=== PATIENT | female | born 1990 | race American Indian/Alaskan Native ===

== ENCOUNTER → 2020-03-22 19:14 | Outpatient (CLI) | payer OTHER, SELFPAY ==
--- NOTE | 2020-03-22 | DI.RAD.S_ITS ---
PROCEDURE: XR THORACIC SPINE 2V INDICATIONS: M9902 M546 Pain, injury TECHNIQUE: 3 views of the thoracic spine were acquired. COMPARISON: None. FINDINGS: Bones: No fracture. Lateral curvature of the visualized spine. Multilevel degenerative endplate sclerosis and spurring. Diffuse facet arthropathy. Soft tissues: No paravertebral stripe thickening. IMPRESSION: No fracture. Lateral curvature of the visualized spine. Discogenic changes Dictated by: Yvan Salgado M.D. on 03/23/2020 at 9:43 Approved by: Yvan Salgado M.D. on 03/23/2020 at 9:44
== END ==
PROVIDERS: Referring Provider Chiropractor; Visit Provider Chiropractor
DX: M99.02 Segmental and somatic dysfunction of thoracic region (principal); M54.6 Pain in thoracic spine; M47.812 Spondylosis without myelopathy or radiculopathy, cervical region
CPT/HCPCS: 72070

== ENCOUNTER → 2023-12-19 14:14 | Outpatient (CLI) | payer MEDICAID, SELFPAY ==
--- NOTE | 2023-12-19 14:17 | DI.MRI.S_ITS ---
PROCEDURE: MR HEAD/BRAIN WO/W CON INDICATIONS: Left sided numbness TECHNIQUE: Noncontrast axial T1 spin echo, axial T2 fast spin echo, sagittal and axial FLAIR, coronal T2 fast spin echo, axial gradient echo, axial diffusion and ADC through the brain. After the administration of contrast, axial and coronal and sagittal 3D VIBE or T1 spin echo with fat saturation through the brain. COMPARISON: [facility], CT, CT HEAD WITHOUT CONTRAST, 10/28/2023, 17:12. No acute FINDINGS: Image quality: Excellent. CSF Spaces: Basal cisterns are patent. No extra-axial fluid collections. Ventricles are normal in size and shape. Brain: Left frontal periventricular T2/FLAIR hyperintense lesion with a perpendicular orientation from the lateral ventricle and mild T1 hypointense signal. There are smaller adjacent periventricular lesions with perpendicular orientation and some faint lesions which involve the corpus callosum. Additional periventricular lesion along the occipital horn of the left lateral ventricle. Few other tiny foci of FLAIR hyperintense signal within the supratentorial white matter. No midline shift. No intracranial bleeds or masses. No abnormal intracranial enhancement. The brainstem appears normal. Diffusion-weighted images demonstrate no acute infarct. No chronic ischemic insults. Normal intravascular flow voids are present. Skull and face: Calvarial marrow is normal in signal. Orbits appear normal. Sinuses: Sinuses and mastoids appear clear. IMPRESSION: Periventricular white matter lesions as described above concerning for a demyelinating process such as multiple sclerosis. Recommend clinical co intracranial abnormalities otherwise. rrelation. Dictated by: Long Sen M.D. on 12/21/2023 at 13:14 Approved by: Long Sen M.D. on 12/21/2023 at 13:18
== END ==
LOC: MRI 14:16
PROVIDERS: Referring Provider Family Medicine; Visit Provider Family Medicine
DX: G93.9 Disorder of brain, unspecified (principal); R20.0 Anesthesia of skin
CPT/HCPCS: 70553; A9579

== ENCOUNTER 2023-12-24 11:38 | Emergency (ER) | payer MEDICAID, SELFPAY ==
[2023-12-24 11:44] VITALS: BP 120/77; PULSE 99; RESP 16; TEMP 36.9; O2SAT 99; BMI 25.6
--- NOTE | 2023-12-24 12:08 | PC.NURSE ---
Pt concerned about progressing MS; pt ambulated w/o assistance. Stable gait. Respirations regular and unlabored. Pt tearful. Pt declined further comfort measures (e.g., warm blanket)
--- NOTE | 2023-12-24 14:02 | EKG_ITS ---
[address] [address] [address], [place] [address] Test Date: 2023-12-24 Pat Name: Cici Gonzales Department: [facility] Room: Gender: Female Nurse Licensed Practical: NEFTALY : 1990 Requested By: Order Number: [id number] Reading MD: Juan Pablo Bradford Measurements Intervals [place] Rate: 68 P: 41 MS: 142 QRS: 78 QRSD: 84 T: 48 QT: 378 QTc: 401 Interpretive Statements Normal sinus rhythm Electronically Signed On 12-29-2023 8:59:39 PDT by Juan Pablo Bradford
[2023-12-24 14:04] LABS: Add Manual Diff / Slide Review NO; Basophils Absolute Auto 0 /uL (0-100); Basophils Percent Auto 0.5 % (0-2); Eosinophils Absolute Auto 0 /uL (0-450); Eosinophils Percent Auto 0.5 % (2-4); Hematocrit 43.7 % (36-46); Hemoglobin 15.2 g/dL (12.0-16.0); Lymphocytes Absolute Auto 1800 /uL (1100-4500); Lymphocytes Percent Auto 20.9 % (25-40); Mean Corpuscular HGB Conc 34.7 % (30-36); Mean Corpuscular Hemoglobin 30.9 PG (26-34); Mean Corpuscular Volume 88.9 fL (80-100); Monocytes Absolute Auto 400 /uL (0-900); Monocytes Percent Auto 4.6 % (3-14); Neutrophils Absolute Auto 6300 /uL (1500-7000); Neutrophils Percent Auto 73.5 % (50-75); Platelet Count 255 X10^3/uL (150-400); Red Blood Cell Count 4.91 X10^6/uL (4.0-5.2); Red Cell Distribution Width 13.9 % (11.6-14.8); White Blood Cell Count 8.6 X10^3/uL (4.5-11.0)
[2023-12-24 14:15] LABS: INR 1.1 (0.9-1.3); Prothrombin Time 12.3 SECONDS (9.4-12.5)
[2023-12-24 14:17] LABS: PTT Partial Thromboplastin Tim 34 SECONDS (25.1-36.5)
[2023-12-24 14:19] LABS: Alanine Aminotransferase 32 IU/L (<35); Albumin 4.7 g/dL (3.5-5.0); Albumin Globulin Ratio 1.2 (1.0-2.8); Alkaline Phosphatase 69 U/L (38-126); Aspartate Aminotransferase 24 IU/L (14-36); BUN Creatinine Ratio 14.5 (6-22); Bilirubin Total 0.9 mg/dL (0.2-1.3); Blood Urea Nitrogen 12 mg/dL (7-17); Calcium 9.1 mg/dL (8.4-10.2); Carbon Dioxide 25 mmol/L (22-32); Chloride 104 mmol/L (98-107); Creatine Kinase 36 U/L (30-135); Estimated Glomerular Filt Rate > 60 mL/min (>60); Globulin 3.8 g/dL (1.7-4.1); Glucose 96 mg/dL (70-100); HEMOLYSIS < 15 (0-50); Lipase 162 U/L (23-300); Magnesium 2.3 mg/dL (1.6-2.3); Potassium 3.8 mmol/L (3.4-5.1); Sodium 139 mmol/L (137-145); Total Protein 8.5 g/dL (6.3-8.2)
[2023-12-24 14:30] LABS: NT-proBNP (BNP-Adult 18+) < 20 pg/mL (<125); Troponin I < 0.012 ng/mL (0.01-0.034)
--- NOTE | 2023-12-24 14:44 | ED.NEUROSD ---
HPI - Neuro Symptoms/Deficit General Chief Complaint: Neuro Symptoms/Deficit Stated Complaint: MS Symptoms Time Seen by Provider: 12/24/23 13:52 Source: patient Mode of arrival: Ambulatory History of Present Illness HPI Narrative: 33-year-old female with worsening left-sided numbness, face and upper extremity more so than the lower extremity. Recent MRI of the brain suggestive of demyelinating process, yet to speak with Neurology but scheduled to have an appointment with Neurology 01/05/2024 Dr. Saldana at [facility]. Patient recalls having some weakness and numbness to the left face, some transient blurred vision, intermittently since July 2023. She had low back pain problems in August of 2023, that seemed to resolve by September 2023. Subsequent to September she started developing left mid facial pain, left eye pain, was concerned that she might have trigeminal neuralgia, or TMJ, saw attending ambulatory care provider, no improvement of symptoms. She is intermittently felt off balance. She had MRI of the brain performed 12/19/2023 here that was ordered by her primary care providers Dr. Garcia and Dr. Adam at [facility] as an outpatient. She recalls phone consultation was done by her provider with [facility] neurology, with discussion of MRI showing some kind of demyelinating process, apparently there was ?no intracranial enhancement ?so apparently this was not felt to be an active problem, no specific therapy. Further imaging of the spine MRI T-spine and lumbar spine was advised, not yet scheduled. She has had increasing left numbness primarily facial and arm, less so on the leg. She denies new weakness. No incontinence. No seizure shaking activity. No current or recent visual complaints. No headache or neck pain problems. Denies fevers or chills. On Anticoagulants: No Related Data Allergies Allergy/AdvReac Type Severity Reaction Status Date / Time lactose AdvReac Mild Abdominal Verified 12/24/23 11:52 Pain shellfish derived AdvReac Mild Joint Pain Verified 12/24/23 11:51 Review of Systems Review of Systems Narrative: As per HPI Hematologic/Lymphatic On Anticoagulants: No Patient History Social History Smoking Status: Never smoker Smoking Status: Never smoker alcohol intake frequency: 0-2 drinks per day Substance Use Type: does not use Exam Narrative Exam Narrative: GENERAL: Well-developed patient, in mild distress. HEAD: Atraumatic. Normocephalic. EYES: Pupils equal round and reactive. Extraocular motions intact. No scleral icterus. No injection or drainage. ENT: Nose without bleeding, purulent drainage. Throat without erythema, tonsillar hypertrophy or exudate. Airway patent. NECK: Trachea midline. Non tender CARDIOVASCULAR: Regular rate and rhythm without murmurs, gallops, or rubs. RESPIRATORY: Clear to auscultation. Breath sounds equal bilaterally. No wheezes, rales, or rhonchi. GASTROINTESTINAL: Abdomen soft, non-tender, nondistended. EXTREMITIES: No edema or joint tenderness. BACK: Nontender without deformity or crepitance. No flank tenderness. NEURO: AOx3. Motor 5/5 upper extremities, motor 5/5 lower extremities, [id number] testing unremarkable. Decreased light touch sensation to left upper mid and lower face, decreased light touch sensation to left upper extremity, intact light touch sensation both lower extremities. Downgoing toes negative Babinski. DTRs unremarkable. SKIN: No rash or erythema of visible areas Initial Vital Signs Initial Vital Signs: Vital Signs Temperature 98.4 F 12/24/23 11:44 Pulse Rate 99 H 12/24/23 11:44 Respiratory Rate 16 12/24/23 11:44 Blood Pressure 120/77 12/24/23 11:44 Pulse Oximetry 99 12/24/23 11:44 Oxygen Delivery Method Room Air 12/24/23 11:44 Course Orders Ordered: ED Orders 12/24/23 13:40 EKG-12 Lead Stat 12/24/23 13:58 Complete Blood Count AUTO DIFF Stat Comprehensive Metabolic Panel Stat Lipase Stat Magnesium Stat NT-proBNP (BNP-Adult 18+) Stat PTT Partial Thromboplastin Hu Stat Prothrombin Time INR Stat Troponin & CK Cardiac Panel Stat Vital Signs Vital signs: Vital Signs - 8 hr 12/24/23 11:44 12/24/23 16:16 Temperature 98.4 F Pulse Rate 99 H Respiratory Rate 16 16 Blood Pressure 120/77 Pulse Oximetry 99 Oxygen Delivery Method Room Air MDM - Neuro Symptoms/Deficit Lab Data Attestation: I reviewed the patient's lab results. 12/24/23 13:58 12/24/23 13:58 Labs: Lab Results 12/24/23 Range/Units 13:58 WBC 8.6 (4.5-11.0) X10^3/uL RBC 4.91 (4.0-5.2) X10^6/uL Hgb 15.2 (12.0-16.0) g/dL Hct 43.7 (36-46) % MCV 88.9 (80-100) fL MCH 30.9 (26-34) PG MCHC 34.7 (30-36) % RDW 13.9 (11.6-14.8) % Plt Count 255 (150-400) X10^3/uL Neut % (Auto) 73.5 (50-75) % Lymph % (Auto) 20.9 L (25-40) % Baxter % (Auto) 4.6 (3-14) % Eos % (Auto) 0.5 L (2-4) % Baso % (Auto) 0.5 (0-2) % Neut # (Auto) 6300 (6512-7259) /uL Lymph # (Auto) 1800 (5569-9714) /uL Baxter # (Auto) 400 (0-900) /uL Eos # (Auto) 0 (0-450) /uL Baso # (Auto) 0 (0-100) /uL PT 12.3 (9.4-12.5) SECONDS INR 1.1 (0.9-1.3) APTT 34 (25.1-36.5) SECONDS Sodium 139 (137-145) mmol/L Potassium 3.8 (3.4-5.1) mmol/L Chloride 104 (98-107) mmol/L Carbon Dioxide 25 (22-32) mmol/L BUN 12 (7-17) mg/dL Creatinine 0.83 (0.52-1.04) mg/dL Estimated GFR > 60 (>60) mL/min BUN/Creatinine Ratio 14.5 (6-22) Glucose 96 (70-100) mg/dL Calcium 9.1 (8.4-10.2) mg/dL Magnesium 2.3 (1.6-2.3) mg/dL Total Bilirubin 0.9 (0.2-1.3) mg/dL AST 24 (14-36) IU/L ALT 32 (<35) IU/L Alkaline Phosphatase 69 (38-126) U/L Total Creatine Kinase 36 (30-135) U/L Troponin I < 0.012 (0.01-0.034) ng/mL NT-Pro-B Natriuret Pep < 20 (<125) pg/mL Total Protein 8.5 H (6.3-8.2) g/dL Albumin 4.7 (3.5-5.0) g/dL Globulin 3.8 (1.7-4.1) g/dL Albumin/Globulin Ratio 1.2 (1.0-2.8) Lipase 162 (23-300) U/L ECG Data Attestation: I personally reviewed and interpreted this ECG as follows: Interpretation: Normal sinus rhythm with rate of 68, no obvious ST segment elevation or depression changes. SC 142, QRS 84, QTC 401. MDM Narrative Medical decision making narrative: 33-year-old female with intermittent predominant left-sided face and left upper extremity numbness and tingling since July 2023, lumbar back pain that seems resolved from September-October, recent MRI brain study 12/19/2023 suspicious for a demyelinating process, awaiting outpatient Neurology consultation on 01/05/2024, recommended to obtain MRI T-spine and L-spine studies that have not yet been performed. Patient presenting with increased left-sided numbness to left face and left arm last few days, no weakness, some decreased sensation light touch left facial divisions and left upper extremity, less so left lower extremity, however 4 months duration. No motor findings. CASUALTY INSURANCE CLAIM ADJUSTER query today 23 of December holiday, no instrument/control technician available at this hour, unclear if available tomorrow. Seems unlikely emergent transfer for imaging warranted. Patient/family would like me to discuss case with Neurology, to see if there is any treatment options that they would recommend at this time, versus outpatient workup Case discsssued with intake nurse, await callback from Neurology While awaiting callback from Neurology patient/family eloped from the ED, unanncounced to me, as stated by ED nursing Discharge Plan Departure Patient Disposition: Left Against Medical Advice Clinical Impression: Patient left before treatment completed Activity Restrictions/Additional Instructions: Patient eloped before attempts to reach Neurology for phone consultation. Patient has follow up with Neurology was scheduled as an outpatient 01/05/2024 Referrals: Miscellaneous,Doctor, MD [Primary Care Provider] - Stand Alone Forms: Patient Portal/API, Against Medical Advice
--- NOTE | 2023-12-24 16:12 | PC.NURSE ---
Pt stated she wished to leave and asked if MD could call back when Neurology calls back; Pt informed MD leaves at 1800 and if he receives a call back prior to departure he will make an effort to contact pt with neurology recommendations. Pt states she has an outpatient appt with neurology. Pt alert and oriented, respirations regular and unlabored, GCS 15, stable gait. Pt expressed wishes to leave rather than wait for Neurology call back. Pt willingly signed AMA paperwork. healthcare management consultant and aware. Pt left w/ significant other.
--- NOTE | 2023-12-24 16:15 | PC.NURSE ---
Left sided numbness and tingling; seen at PCP and had an outpatient MRI where she expressed she may have a dx of MS. Pt expresses concerns over worsening symptoms.
[2023-12-24 16:16] VITALS: RESP 16
== END 2023-12-24 16:16 | disposition left against medical advice (07) ==
PROVIDERS: Emergency Provider Emergency Medicine
DX: R20.0 Anesthesia of skin (principal); R20.2 Paresthesia of skin; Z53.29 Procedure and treatment not carried out because of patient's decision for other reasons
CPT/HCPCS: 36415; 80053; 82550; 83690; 83735; 83880; 84484; 85025; 85610; 85730; 93005; 99283; 99284

== ENCOUNTER → 2023-12-27 08:37 | Outpatient (CLI) | payer MEDICAID, SELFPAY ==
--- NOTE | 2023-12-27 08:38 | DI.MRI.S_ITS ---
PROCEDURE: MR CERVICAL SPINE WO/W CON INDICATIONS: Demyelinating disease of central nervous system TECHNIQUE: Noncontrast sagittal T1 spin echo and T2 fast spin echo, sagittal STIR, sagittal PD fast spin echo, foraminal oblique sagittal T2 fast spin echo, axial gradient echo or T2 fast spin echo through the cervical spine. After the administration of contrast, sagittal and axial T1 spin echo with fat saturation through the cervical spine. COMPARISON: [facility], MR, MR HEAD/BRAIN WO/W CON, 12/19/2023, 14:53. FINDINGS: Image quality: Excellent. Alignment and curvature: There is normal bony alignment. Marrow: Marrow demonstrates normal overall signal. Spinal cord: Visualized spinal cord is normal in size, without white matter lesions. No suspicious intramedullary enhancement. No cerebellar tonsillar herniation. Paraspinous soft tissues: No paravertebral masses or suspicious enhancement. C2-C3: Normal appearance. C3-C4: Right facet hypertrophy. No canal stenosis or foraminal stenosis. C4-C5: Disc bulge. No canal stenosis or foraminal stenosis. C5-C6: Posterior disc bulge. No central canal stenosis. Superimposed mild left posterior lateral disc protrusion which impinges on the ventral horn of the left C6 nerve root in the left lateral recess. Reference sagittal T2 image 31 of series 6 and axial T2 image 30 of series 5. It also abuts the left C6 nerve root in the left foramen. C6-C7: Normal appearance. C7-T1: Normal appearance. IMPRESSION: 1. No cervical cord lesions. No abnormal enhancement with gadolinium. 2. There is mild underlying cervical spondylosis. 3. A mild left posterior lateral disc protrusion at C5-C6 impinges on the ventral horn of the left C6 nerve root in the left lateral recess and abuts the left C6 nerve root in the left foramen. Dictated by: Jose Bustamante M.D. on 12/28/2023 at 8:43 Approved by: Jose Bustamante M.D. on 12/28/2023 at 8:53
--- NOTE | 2023-12-27 08:38 | DI.MRI.S_ITS ---
PROCEDURE: MR THORACIC SPINE WO/W CON INDICATIONS: Demyelinating disease of central nervous system TECHNIQUE: Noncontrast sagittal T1 spin echo and T2 fast spin echo, sagittal STIR, axial T1 and T2 fast spin echo through the thoracic spine. After the administration of contrast, axial and sagittal T1 spin echo with fat saturation through the thoracic spine. COMPARISON: None. FINDINGS: Image quality: Excellent. Alignment and curvature: There is normal bony alignment. Marrow: Marrow is of normal overall signal. No acute vertebral body compression fractures. Spinal cord: There is a single focus of potential signal abnormality present at the T5 vertebral body level, to the left of midline. This is not definite. Reference axial T2 image 19 of series 10 and axial T1 post gadolinium fat sat image 19 of series 15. It is not confirmed on sagittal imaging. Paraspinous soft tissues: No paravertebral masses or abnormal enhancement. Miscellaneous: Central canal and foramina appear widely patent at all scanned levels. IMPRESSION: 1. Question single solitary very small subtle thoracic cord lesion. This is not definite. Comment: Consider 3 month follow-up thoracic spine imaging. Dictated by: Jose Bustamante M.D. on 12/28/2023 at 8:53 Approved by: Jose Bustamante M.D. on 12/28/2023 at 10:00
== END ==
PROVIDERS: Referring Provider Family Medicine; Visit Provider Family Medicine
DX: G37.9 Demyelinating disease of central nervous system, unspecified (principal); M47.812 Spondylosis without myelopathy or radiculopathy, cervical region; M50.222 Other cervical disc displacement at C5-C6 level
CPT/HCPCS: 72156; 72157; A9579

== ENCOUNTER → 2024-04-19 16:30 | Outpatient (CLI) | payer MEDICAID, SELFPAY ==
--- NOTE | 2024-04-19 16:31 | DI.US.S_ITS ---
PROCEDURE: US PELVIC COMPLETE INDICATIONS: ABD PAIN TECHNIQUE: Real-time scanning was performed of the pelvic organs, with image documentation. Additional endovaginal scanning was necessary due to incomplete visualization of the adnexal and endometrial structures by transabdominal scanning. COMPARISON: None. FINDINGS: Uterus: 8.7 x 3.3 x 4.7 cm. The endometrium measures 11 mm. Possible endocervical lesion measuring 1.6 x 0.6 cm. Vascular flows are seen by ultrasound. Ovaries: Nonenlarged right ovary. Mildly enlarged left ovary at 16 cc. A dominant follicle is seen measuring 2.4 x 2 cm. Other: No pathologic free abdominal or pelvic fluid. IMPRESSION: No acute findings to explain abdominal pain. The left ovary is mildly enlarged with a dominant follicular cyst measuring 2.4 cm. Consider follow-up if symptoms worsen, as this can predispose to torsion. Possible endocervical lesion measuring 1.6 x 0.6 cm, which may represent an incidental polyp. Direct visualization versus MRI could further evaluate if needed. Dictated by: Juanito Novoa M.D. on 04/19/2024 at 21:14 Approved by: Juanito Novoa M.D. on 04/19/2024 at 21:17
== END ==
PROVIDERS: PCP Family Medicine; Referring Provider Family Medicine; Visit Provider Family Medicine
DX: N83.02 Follicular cyst of left ovary (principal); R10.32 Left lower quadrant pain
CPT/HCPCS: 76856

== ENCOUNTER 2024-07-08 06:33 | Day surgery (SDC) | payer MEDICAID, SELFPAY ==
[2024-07-04 12:38] VITALS: BMI 25.7
[2024-07-08] VITALS (7 sets, daily range): BP systolic 105–125; BP diastolic 64–86; PULSE 85–107; RESP 16–21; TEMP 36.2–36.4; O2SAT 98–100; BMI 26.7
--- NOTE | 2024-07-08 | PATH_ITS ---
[facility] Accession Number: [id number] No. of containers..01 Tissue . 01 Material submitted: . endometrium - ENDOMETRIAL POLYP . 01 Diagnosis: ENDOMETRIAL POLYP: Benign mixed phase endometrium; negative for intraepithelial neoplasia or malignancy. Some endometrial fragments demonstrate prominent vessels, suggestive of polyp, if clinical and imaging studies are concordant. MRV 07/13/2024 1316 Local . 01 Comment: This case was also reviewed by Dr. Vivi Acevedo, who agrees with the interpretation. . 01 Electronically signed: . Dina Lawson MD, Pathologist NPI- [id number] . 01 Gross description: . The specimen is received in formalin, labeled with two patient identifiers and endometrial polyp, and consists of a 3.5 x 1.5 x 0.8 cm aggregate of acharya-pink, irregular soft tissue fragments admixed with clotted blood which are filtered and submitted entirely in cassettes A1 and A2. ([id number]) /FRR 07/09/2024 1755 Local . 01 Pathologist provided ICD-10: N84.1 . 01 CPT . 101117 Specimen Comment: A courtesy copy of this report has been sent to [phone] Performed at: [address] [facility]– [place], [place], [place] [id number] MD Roney García MD Phone: [phone]
[2024-07-08] MEDS: LACTATED RINGERS 1,000 ML 21 ML IV (07:01)
--- NOTE | 2024-07-08 07:13 | PM.PREOP ---
Pre-operative Note Interval Note History & Physical reviewed/Exam performed by Physician: Yes Changes to H&P: No
--- NOTE | 2024-07-08 07:55 | SUR.OPER ---
Lithotomy on padded OR bed, head on pillow, arms secured on padded arm boards at <90 degrees abduction. Legs secured in padded yellow fins stirrups.
--- NOTE | 2024-07-08 08:22 | PM.OP.1 ---
Operative Date/Time/Diagnoses Date of procedure: 07/08/24 Time of procedure: 08:23 Pre-op diagnosis: Endocervical polyp on ultrasound Post-op diagnosis: same (Multiple uterine polyps) Procedure & Clinicians Procedure: Hysteroscopy with MyoSure removal uterine/endocervical polyps Same procedure as scheduled: Yes Indications: Large endocervical polyp found on ultrasound Surgeon: Ofelia Burton Click Yes if Unassisted: Yes Anesthesia Type: General Operative Notes Findings: Multiple uterine and 1 large endocervical polyp. Normal exam under anesthesia. Closure Type: not applicable Specimen(s): other (Endometrial/endocervical polyps) Estimated Blood Loss (mL): 10 Blood products transfused: none Procedure in detail: The patient was brought to the operating room where she underwent general anesthesia. She was placed in low stirrups. She was prepped and draped in usual sterile fashion with pulsatile stockings in place and functional, warming in place, antibiotics in prior to beginning the case. She emptied her bladder part of the case. A single-tooth tenaculum was placed on the anterior lip of the cervix and the uterus dilated to #8 Hegar dilator. The hysteroscope was placed into the uterus with a saline solution running at 100 with constant suction. The MyoSure was used to remove the endometrial and endocervical polyps. Total fluid used 1143 cc, fluid deficit 0, final pressure 100, cut time 1.56. The patient went to recovery room in good condition counts of instruments and sponges were correct. Complications: none Post-operative Condition: stable Disposition: same day surgery Plan for aftercare: Home when awake and stable
[2024-07-08] MEDS: ACETAMINOPHEN IV 1,000 MG/100 ML VIAL 400 MG IV (08:47)
== END 2024-07-08 09:01 | disposition home or self-care (01) ==
PROVIDERS: PCP Nurse Practitioner Family; Referring Provider Specialist; Visit Provider Specialist
PROC: 0UDB8ZZ Extraction of Endometrium, Via Natural or Artificial Opening Endoscopic (ICD-10-PCS; CPT 58558; principal; 2024-07-08 07:45)
DX: N84.1 Polyp of cervix uteri (principal); G35 Multiple sclerosis
CPT/HCPCS: 58558; 81025; J0131; J1100; J2405; J2704; J3010

== ENCOUNTER → 2025-04-18 13:26 | Outpatient (CLI) | payer OTHER, SELFPAY ==
--- NOTE | 2025-04-18 13:27 | DI.US.S_ITS ---
PROCEDURE: US OB LIMITED INDICATIONS: Placenta location OUTSIDE/PRIOR DATING DATA: Last menstrual period (LMP): 01/09/25. LMP-based estimated date of delivery (BROOKE): 10/16/25. TECHNIQUE: Real-time scanning was performed of the fetus, with image documentation. Endovaginal scanning: For increased cervical detail COMPARISON: None. FINDINGS: A single living intrauterine gestation is present. Presentation: Vertex. Placenta: Placental position is anterior, without previa. Placenta is approximately 3.9 cm from the cervix. No evidence of Conchita placental hemorrhage. Amniotic fluid index: Subjectively normal heart rate: 157 beats per minute. Maternal cervical canal: Closed and 3.6 cm long. Normal lower limit is 2.5 cm. Clinically estimated gestational age: 14 weeks one day IMPRESSION: Single living intrauterine . Anterior placenta without abnormality. No previa. Dictated by: Teresa White M.D. on 04/19/2025 at 11:46 Approved by: Teresa White M.D. on 04/19/2025 at 11:49
== END ==
PROVIDERS: PCP Nurse Practitioner Family; Referring Provider Nurse Practitioner Obstetrics & Gynecology; Visit Provider Nurse Practitioner Obstetrics & Gynecology
DX: O26.852 Spotting complicating pregnancy, second trimester (principal); Z3A.14 14 weeks gestation of pregnancy
CPT/HCPCS: 76815; 76817

== ENCOUNTER → 2025-06-07 07:53 | Outpatient (CLI) | payer OTHER, SELFPAY ==
--- NOTE | 2025-06-07 07:54 | DI.US.S_ITS ---
PROCEDURE: US OB >= 14 WEEKS FETUS INDICATIONS: Complete anatomy scan OUTSIDE/PRIOR DATING DATA: Last menstrual period (LMP): 01/09/2025 LMP-based estimated date of delivery (BROOKE): 10/16/2025 First dating scan (date and location): 03/27/2025 Estimated date of delivery (BROOKE) from first dating scan: 10/15/2025 The calculations are made using the working BROOKE of 10/16/2025. TECHNIQUE: Real-time scanning was performed of the fetus, with image documentation and biometric measurements. Endovaginal scanning: Not performed. COMPARISON: 04/18/2025. FINDINGS: General: A single living intrauterine gestation is present. Presentation: Vertex. Placenta: Placental position is anterior fundal, without previa. Amniotic fluid index: 13.8 cm, normal range is 5-24 cm. Single deepest vertical pocket is 4.3 cm. heart rate: 150 beats per minute. Maternal cervical canal: Closed and measures 3.6 cm long. Normal lower limit is 2.5 cm. biometrics: Biparietal diameter: 5.4 cm, 22 weeks, 3 days. Head circumference: 19.8 cm, 22 weeks, 0 day. Abdominal circumference: 17.1 cm, 22 weeks, 1 day. Femur length: 3.7 cm, 21 weeks, 6 days. Clinically estimated gestational age: 21 weeks, 2 days Composite gestational age from present scan: 22 weeks, 1 day Estimated weight and percentile: 469 g, 82% Anatomic survey: Neuro: Ventricles are non-dilated at less than 10 mm. Cisterna magna is normal at 3-11 mm. Cerebellum is normal in size and morphology. Nuchal skin fold: Normal at less than 6 mm between 14-21 weeks gestational age. Face: Nose and lips, facial profile are normal. Spine: No evidence for spina bifida. Heart: 4-chambered heart is present, with normal ventricular outflow tracts. Diaphragm: Diaphragm is intact. Stomach: Left-sided stomach is present. Kidneys: No hydronephrosis. Normal is less than 5 mm in 2nd trimester, less than 7 mm in 3rd trimester. Cord: 3-vessel cord has orthotopic insertion. Bladder: Normal in size. Extremities: All 4 extremities identified. Possible bilateral clubfoot. IMPRESSION: 1. Single live intrauterine gestation with fetus in vertex presentation. heart rate is 150 beats per minute. Normal CHICHO at 13.8 cm. 2. Normal growth. Estimated weight is at 82%. 3. Possible bilateral clubfoot suggest follow-up after . Rest of the anatomic survey is normal. We strive to produce accurate, complete, and clear reports of imaging services. To assist us in improving patient care, this report was composed using standard report templates and voice recognition software. Therefore, it may contain abnormal punctuation, insertions and/or omissions. Occasional wrong-word or sound-alike substitutions may occur. Though we review the report and make efforts to correct it, we do recommend that the report be read carefully in proper context to recognize any text inaccuracies. Dictated by: Ayden Walker M.D. on 06/07/2025 at 9:10 Approved by: Ayden Walker M.D. on 06/07/2025 at 9:14
== END ==
LOC: US 07:53
PROVIDERS: PCP Nurse Practitioner Family; Referring Provider Advanced Practice Midwife; Visit Provider Advanced Practice Midwife
DX: Z34.92 Encounter for supervision of normal pregnancy, unspecified, second trimester (principal); Z3A.21 21 weeks gestation of pregnancy
CPT/HCPCS: 76811